=== PATIENT | female | born 1975 | race Caucasian/White ===

== ENCOUNTER 2018-01-08 21:42 | Emergency (ER) | payer OTHER ==
[2018-01-08 22:02] VITALS: BMI 24.5
--- NOTE | 2018-01-08 22:18 | PDOC ---
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 Right elbow fracture Pshx:2013: Open-heart surgery, 2015: ORIF right elbow Allergies:NKDA FH:0 Social Hx: Cigarettes/ 0 Alcohol/ 0 Drugs/0 LMP:12/24/2017 42-year-old female presents to the emergency department with her complaining of left-sided flank pain with urinary frequency/urgency/hesitancy without hematuria but endorses nausea 3 days. Patient states she was at [facility] emergency department yesterday and waited for approximately 5 hours which prompted him to leave without getting seen. Patient denies fever, chills, dizziness, lightheadedness, neck pain/stiffness, back pains, chest pain , shortness of breath, abdominal pain. There are no alleviating factors but exacerbated on touch to the left flank. Patient states it feels similar to her previous UTI but with left flank pain now. Past History - Past Medical History Allergies/Adverse Reactions: Allergies Allergy/AdvReac Type Severity Reaction Status Date / Time No Known Drug Allergies Allergy Verified 01/08/18 21:59 Home Medications: Ambulatory Orders NK [No Known Home Medication] 08/15/15 Asthma: No Cancer: No Cardiac Disorders: Yes (2013 'HOLE IN HEART PATCHED UP") CVA: No COPD: No CHF: No Dementia: No Diabetes: No GI Disorders: No Disorders: No HTN: No Hypercholesterolemia: No Liver Disease: No Seizures: No Thyroid Disease: No - Surgical History Abdominal Surgery: No Appendectomy: No Cardiac Surgery: Yes (2013 "HOLE IN HEART PATCHED") Cholecystectomy: No Lung Surgery: No Neurologic Surgery: No Orthopedic Surgery: Yes (R ELBOW ORIF) - Reproductive History Tubal Ligation: No Spontaneous : 2 - Immunization History Immunization Up to Date: Yes - Suicide/Smoking/Psychosocial Hx Smoking History: Never smoked Have you smoked in the past 12 months: No Number of Cigarettes Smoked Daily: 0 Cigars Per Day: 0 Hx Alcohol Use: No Drug/Substance Use Hx: No Substance Use Type: None Hx Substance Use Treatment: No Review of Systems - Review of Systems Able to Perform ROS?: Yes Comments:: 01/08/18 23:45 CONSTITUTIONAL: Absent: fever, chills, diaphoresis, generalized weakness, malaise, loss of appetite HEENT: Absent: rhinorrhea, nasal congestion, throat pain, throat swelling, difficulty swallowing, mouth swelling, ear pain, eye pain, visual Changes CARDIOVASCULAR: Absent: chest pain, loss of consciousness, palpitations, irregular heart rate, peripheral edema RESPIRATORY: Absent: cough, shortness of breath, dyspnea with exertion, orthopnea, wheezing, stridor, hemoptysis GASTROINTESTINAL: Absent: abdominal pain, abdominal distension, nausea, vomiting, diarrhea, constipation, melena, hematochezia GENITOURINARY: +Left flank pain + dysuria, frequency, urgency, hesitancy Absent: hematuria,genital pain MUSCULOSKELETAL: Absent: myalgia, arthralgia, joint swelling SKIN: Absent: rash, itching, pallor 01/08/18 23:59 Is the patient limited Malagasy proficient: No *Physical Exam - Vital Signs Last Vital Signs Temp Pulse Resp BP Pulse Ox 98.7 F 85 18 99/69 100 01/08/18 21:59 01/08/18 21:59 01/08/18 21:59 01/08/18 21:59 01/08/18 21:59 - Physical Exam Comments: 01/08/18 23:58 GENERAL: Well developed, well nourished. Awake and alert. No acute distress. HEENT: Normocephalic, atraumatic. PERRLA, EOMI. No conjunctival pallor. Sclera are non- icteric. Moist mucous membranes. Oropharynx is clear. NECK: Supple. Full ROM. No JVD. Carotid pulses 2+ and symmetric, without bruits. No thyromegaly. No lymphadenopathy. CARDIOVASCULAR: Regular rate and rhythm. No murmurs, rubs, or gallops. Distal pulses are 2+ and symmetric. PULMONARY: No evidence of respiratory distress. Lungs clear to auscultation bilaterally. No wheezing, rales or rhonchi. ABDOMINAL: Soft. Non-tender. Non-distended. No rebound or guarding. No organomegaly. Normoactive bowel sounds. MUSCULOSKELETAL +Left CVAT Normal range of motion at all joints. No bony deformities or tenderness. EXTREMITIES: No cyanosis. No clubbing. No edema. No calf tenderness. SKIN: Warm and dry. Normal capillary refill. No rashes. No jaundice. NEUROLOGICAL: Alert, awake, appropriate. Cranial nerves 2-12 intact. No deficits to light touch and temperature in face, upper extremities and lower extremities. No motor deficits in the in face, upper extremities and lower extremities. Normoreflexic in the upper and lower extremities. Normal speech. Toes are down- going bilaterally. Gait is normal without ataxia. PSYCHIATRIC: Cooperative. Good eye contact. Appropriate mood and affect. ED Treatment Course - LABORATORY CBC & Chemistry Diagram: 01/08/18 10:20 01/08/18 22:20 - RADIOLOGY Radiograph Interpretation: 01/09/18 02:12 CT renal colic: Questionable fibroids, moderate amounts of diffuse solid stool, 3 mm right middle lobe nodule may be evaluated in 12 months of the a she is at high risk for neoplasm. *DC/Admit/Observation/Transfer Diagnosis at time of Disposition: Right middle lobe pulmonary nodule UTI (urinary tract infection) Qualifiers: Urinary tract infection type: acute cystitis Hematuria presence: without hematuria Qualified Code(s): N30.00 - Acute cystitis without hematuria Constipation Qualifiers: Constipation type: unspecified constipation type Qualified Code(s): K59.00 - Constipation, unspecified - Discharge Dispostion Condition at time of disposition: Stable Decision to Admit order: No - Referrals Referrals: Gaurav Luu [Primary Care Provider] - Ronald Newell MD [Staff Physician] - Ellis Jackson MD [Staff Physician] - Johnnie Mzea MD [Staff Physician] - - Patient Instructions Printed Discharge Instructions: DI for Urinary Tract Infection (UTI), DI for Constipation, DI for Pulmonary Nodule Additional Instructions: You had a CAT scan today while in the emergency department Your preliminary impression shows you have questionable fibroids You have moderate amount of diffuse solid stool You have a 3 mm nodule to your right middle lung and it is highly suggested that you get evaluated in 12 months or sooner Please follow-up with the urologist for your UTI Please follow-up with your trash man for constipation And follow-up with the manufacturing leader for your lung nodule Return back to the emergency department for severe/persistent or worsening symptoms It is important that you take a stool softener such chest Colace or MiraLAX for constipation - Post Discharge Activity
[2018-01-08] MEDS ORDERED: SODIUM CHLORIDE 1,000 ML IV STA (22:19)
[2018-01-08 22:51] LABS: BASO % 0.7 % (0-2.0); EOS % 2.2 % (0-4.5); HEMATOCRIT 38.4 % (32.4-45.2); HEMOGLOBIN 12.6 GM/dL (10.7-15.3); LYMPH % 23.2 % (8-40); MCH 28.4 pg (25.7-33.7); MCHC 32.8 g/dl (32.0-36.0); MEAN CELL VOLUME 86.6 fl (80-96); MEAN PLT VOLUME 8.7 fl (7.5-11.1); MONO % 9.5 % (3.8-10.2); NEUT % 64.4 % (42.8-82.8); PLATELET COUNT 216 K/MM3 (134-434); RBC 4.44 M/mm3 (3.60-5.2); RDW 14.5 % (11.6-15.6); WHITE BLOOD COUNT 10.6 K/mm3 (4.0-10.0)
[2018-01-08] MEDS ORDERED: KETOROLAC TROMETHAMINE 30 MG/1 ML VIAL IVPUSH ONE (22:53)
[2018-01-08] MEDS ORDERED: KETOROLAC TROMETHAMINE 30 MG/1 ML VIAL ONE (22:54)
[2018-01-08 22:57] LABS: URINE APPEARANCE SLCLOUDY; URINE BILIRUBIN NEGATIVE (<2.0 mg/dL); URINE COLOR STRAW; URINE GLUCOSE (UA) NEGATIVE (NEGATIVE); URINE KETONE NEGATIVE (NEGATIVE); URINE LEUK ESTERASE 3+ (NEGATIVE); URINE NITRITE NEGATIVE (NEGATIVE); URINE PROTEIN NEGATIVE (NEGATIVE); URINE UROBILINOGEN NEGATIVE mg/dL (0.2-1.0)
[2018-01-08 22:59] LABS: HCG,QUALITATIVE URINE Negative
[2018-01-08 23:10] LABS: EPI CELLS RARE /HPF (FEW); URINE MUCUS RARE
[2018-01-08 23:18] LABS: ALBUMIN 3.6 g/dl (3.4-5.0); ALK PHOS 53 U/L (45-117); ANION GAP 6 MMOL/L (8-16); BILIRUBIN,TOTAL 0.3 mg/dL (0.2-1); BLOOD UREA NITROGEN 15 mg/dL (7-18); CALCIUM 8.5 mg/dL (8.5-10.1); CHLORIDE 111 mmol/L (98-107); CO2 25 mmol/L (21-32); CREATININE 0.7 mg/dL (0.55-1.3); GLUCOSE,RANDOM 94 mg/dL (74-106); POTASSIUM 4.1 mmol/L (3.5-5.1); SGOT/AST 22 U/L (15-37); SGPT/ALT 21 U/L (13-61); SODIUM 142 mmol/L (136-145); TOT PROT 6.7 g/dl (6.4-8.2)
[2018-01-08] MEDS ORDERED: METOCLOPRAMIDE HCL INJECTION 10 MG/2 ML VIAL IVPB ONE (23:26)
[2018-01-09] MEDS ORDERED: METOCLOPRAMIDE HCL INJECTION 10 MG/2 ML VIAL ONE (00:45)
[2018-01-09] MEDS ORDERED: NITROFURANTOIN MACROCRYSTAL 50 MG CAPSULE (FP) ONE (02:29)
[2018-01-09] MEDS ORDERED: NITROFURANTOIN MACROCRYSTAL 50 MG CAPSULE (FP) PO SCH (02:30)
[2018-01-09 02:42] VITALS: BP 105/71; PULSE 72; TEMP 98
== END 2018-01-09 02:43 | disposition home or self-care (01) ==
LOC: JER 21:42
PROC: 3E0337Z Introduction of Electrolytic and Water Balance Substance into Peripheral Vein, Percutaneous Approach (ICD-10-PCS; principal; 2018-01-08)
PROC: 3E033GC Introduction of Other Therapeutic Substance into Peripheral Vein, Percutaneous Approach (ICD-10-PCS; 2018-01-08)
PROC: 3E0333Z Introduction of Anti-inflammatory into Peripheral Vein, Percutaneous Approach (ICD-10-PCS; 2018-01-08)
DX: N30.00 Acute cystitis without hematuria (principal); K59.00 Constipation, unspecified; R91.1 Solitary pulmonary nodule
CPT/HCPCS: 36415; 74176; 80053; 81003; 81015; 84703; 85025; 87086; 87186; 99283-25; J7030

== ENCOUNTER 2019-05-14 16:51 | Emergency (ER) | payer OTHER ==
--- NOTE | 2019-05-14 17:05 | PDOC ---
Rapid Medical Evaluation Time Seen by Provider: 05/14/19 17:00 Medical Evaluation: Allergies Allergy/AdvReac Type Severity Reaction Status Date / Time No Known Drug Allergies Allergy Verified 01/08/18 21:59 05/14/19 17:01 Pt c/o: headache x 2 days, dizziness, sore throat, sent by dr clemente Pt on brief exam: vss, pt ordered for: head ct, labs, pt to proceed to the ED Discharge Disposition - Diagnosis Headache - Referrals - Patient Instructions - Post Discharge Activity
[2019-05-14 17:06] VITALS: BP 102/65; PULSE 85; TEMP 98.3; BMI 22.8
[2019-05-14] MEDS ORDERED: METOCLOPRAMIDE HCL INJECTION 10 MG/2 ML VIAL IVPB ONE (17:44)
[2019-05-14] MEDS ORDERED: SODIUM CHLORIDE 1,000 ML IV STA (17:46)
[2019-05-14] MEDS ORDERED: METOCLOPRAMIDE HCL INJECTION 10 MG/2 ML VIAL ONE (18:04)
[2019-05-14] MEDS ORDERED: KETOROLAC TROMETHAMINE 30 MG/1 ML VIAL IVPUSH ONE (18:11)
--- NOTE | 2019-05-14 18:24 | PDOC ---
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 Patient report was seen by PCP today for symptoms and referred for head CT but unable to get to radiologist and ordered a CT so she came to the ED. Patient reported PCP swabbed for rapid flu and strep but results will not be available until tomorrow. Patient report taking Tylenol [id number] thousand milligrams p.o. 2 hours ago for headache. Denies vomiting, diarrhea, constipation. Denies any other symptoms Is this a multiple visit Asthma Patient?: No <Mic Branch - Last Filed: 05/14/19 19:09> <Claudia Smith - Last Filed: 05/16/19 16:16> - General Chief Complaint: Headache Stated Complaint: headache, sent by PMD for head CT Time Seen by Provider: 05/14/19 17:00 Past History - Past Medical History Asthma: No Cancer: No Cardiac Disorders: Yes (2013 'HOLE IN HEART PATCHED UP") CVA: No COPD: No CHF: No Dementia: No Diabetes: No GI Disorders: No Disorders: No HTN: No Hypercholesterolemia: No Liver Disease: No Seizures: No Thyroid Disease: No Other medical history: dvt - Surgical History Abdominal Surgery: No Appendectomy: No Cardiac Surgery: Yes (2013 "HOLE IN HEART PATCHED") Cholecystectomy: No Lung Surgery: No Neurologic Surgery: No Orthopedic Surgery: Yes (R ELBOW ORIF) - Reproductive History Tubal Ligation: No Spontaneous : 2 - Immunization History Immunization Up to Date: Yes - Psycho Social/Smoking Cessation Hx Smoking History: Never smoked Have you smoked in the past 12 months: No Number of Cigarettes Smoked Daily: 0 Cigars Per Day: 0 Information on smoking cessation initiated: No Hx Alcohol Use: No Drug/Substance Use Hx: No Substance Use Type: None Hx Substance Use Treatment: No <Mic Branch - Last Filed: 05/14/19 19:09> <Claudia Smith - Last Filed: 05/16/19 16:16> - Past Medical History Allergies/Adverse Reactions: Allergies Allergy/AdvReac Type Severity Reaction Status Date / Time No Known Drug Allergies Allergy Verified 05/14/19 17:06 Home Medications: Ambulatory Orders Butalb/Acetaminophen/Caffeine [Fioricet 50-300-40 mg Capsule] 1 each PO Q6H PRN #20 capsule 05/14/19 Ipratropium Dukedom 2 spray NS BID PRN 5 Days #1 spray 05/14/19 Review of Systems - Review of Systems Able to Perform ROS?: Yes Is the patient limited Tongan proficient: No Constitutional: Yes: Chills, Fever, Malaise, Weakness HEENTM: Yes: Symptoms Reported, See HPI, Nose Congestion, Throat Pain. No: Eye Pain, Blurred Vision, Tearing, Recent change in vision, Double Vision, Cataracts , Ear Pain, Ocular Prothesis, Ear Discharge, Nose Pain, Tinnitus, Nose Bleeding , Hearing Loss, Throat Swelling, Mouth Pain, Dental Problems, Difficulty Swallowing, Mouth Swelling, Other Respiratory: No: Symptoms reported, See HPI, Cough, Orthopnea, Shortness of Breath, SOB with Exertion, SOB at Rest, Stridor, Wheezing, Productive cough, Hemoptysis, Other Cardiac (ROS): No: Symptoms Reported, See HPI, Chest Pain, Edema, Irregular Heart Rate, Lightheadedness, Palpitations, Syncope, Chest Tightness, Other ABD/GI: Yes: Symptoms Reported, See HPI, Nausea, Abdominal cramping. No: Abd. Pain w/ defecation, Blood Streaked Bowels, Constipated, Diarrhea, Difficulty Swallowing, Poor Appetite, Rectal Bleeding, Vomiting, Indigestion : No: Symptoms Reported, Dysuria, Discharge, Frequency, Urgency Musculoskeletal: No: Symptoms Reported Integumentary: No: Symptoms Reported, Rash Neurological: Yes: Symptoms reported, See HPI, Headache. No: Numbness, Paresthesia, Weakness, Dizziness All Other Systems: Reviewed and Negative <Mic Branch - Last Filed: 05/14/19 19:09> *Physical Exam - Vital Signs Last Vital Signs Temp Pulse Resp BP Pulse Ox 98.3 F 85 20 102/65 100 05/14/19 17:04 05/14/19 17:04 05/14/19 17:04 05/14/19 17:04 05/14/19 17:04 - Physical Exam 05/14/19 18:24 GENERAL: Well developed, well nourished. Awake and alert. No acute distress. HEENT: Normocephalic, atraumatic. PERRLA, EOMI. No conjunctival pallor. Sclera are non-icteric. Moist mucous membranes. Oropharynx is clear. NECK: Supple. Full ROM. CARDIOVASCULAR: Regular rate and rhythm. No murmurs, rubs, or gallops. Distal pulses are 2+ and symmetric. PULMONARY: No evidence of respiratory distress. Lungs clear to auscultation bilaterally. No wheezing, rales or rhonchi. ABDOMINAL: Soft. Non-tender. Non-distended. No rebound or guarding. No organomegaly. Normoactive bowel sounds. MUSCULOSKELETAL Normal range of motion at all joints. SKIN: Warm and dry. Normal capillary refill. No rashes. No jaundice. No cyanosis NEUROLOGICAL: Alert, awake, appropriate. Gait is normal without ataxia. PSYCHIATRIC: Cooperative. Good eye contact. Appropriate mood General Appearance: Yes: Nourished, Appropriately Dressed. No: Apparent Distress <Mic Branch - Last Filed: 05/14/19 19:09> - Vital Signs Last Vital Signs Temp Pulse Resp BP Pulse Ox 98.3 F 85 20 102/65 100 05/14/19 17:04 05/14/19 17:04 05/14/19 17:04 05/14/19 17:04 05/14/19 17:04 <Claudia Smith - Last Filed: 05/16/19 16:16> ED Treatment Course - LABORATORY CBC & Chemistry Diagram: 05/14/19 17:30 05/14/19 17:30 - Medications Given in the ED: ED Medications Discontinued Medications Generic Name Dose Route Start Last Admin Trade Name Freq PRN Reason Stop Dose Admin Metoclopramide HCl 10 mg 05/14/19 17:44 05/14/19 18:15 Reglan Injection - IVPB 05/14/19 17:45 10 mg ONCE ONE Administration <Mic Branch - Last Filed: 05/14/19 19:09> - LABORATORY CBC & Chemistry Diagram: 05/14/19 17:30 05/14/19 17:30 - ADDITIONAL ORDERS Additional order review: Laboratory Results 05/14/19 17:30 Urine Color Yellow Urine Appearance Clear Urine pH 5.0 D Ur Specific [place] 1.007 L Urine Protein Negative Urine Glucose (UA) Negative Urine Ketones Negative Urine Blood Negative Urine Nitrite Negative Urine Bilirubin Negative Urine Urobilinogen 0.2 Ur Leukocyte Esterase Negative 05/14/19 17:30 RBC 4.82 MCV 87.2 MCHC 33.1 RDW 14.0 MPV 8.4 Neutrophils % 68.2 Lymphocytes % 22.3 Monocytes % 6.7 Eosinophils % 2.2 Basophils % 0.6 - Medications Given in the ED: ED Medications Discontinued Medications Generic Name Dose Route Start Last Admin Trade Name Freq PRN Reason Stop Dose Admin Metoclopramide HCl 10 mg 05/14/19 17:44 05/14/19 18:15 Reglan Injection - IVPB 05/14/19 17:45 10 mg ONCE ONE Administration <Claudai Smith - Last Filed: 05/16/19 16:16> Medical Decision Making - Medical Decision Making 05/14/19 18:21 Patient with 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 Patient report was seen by PCP today for symptoms and referred for head CT but unable to get to radiologist and ordered a CT so she came to the ED. Patient reported PCP swabbed for rapid flu and strep but results will not be available until tomorrow. Patient report taking Tylenol [id number] thousand milligrams p.o. 2 hours ago for headache. Denies vomiting, diarrhea, constipation. Denies any other symptoms Clinical exam unremarkable with normal cardio and lung exam. Patient afebrile now. Patient in no acute distress. Normal neuro exam. CT ordered from triage shows no acute head pathology. Patient symptoms likely influenza. Rapid flu ordered to rule influenza. CBC and chemistry lab ordered. IV fluids 1 L normal saline and Reglan 10 mg IV ordered for headaches. Toradol 30 mg IV ordered for headache. Reassess after 20 minutes 05/14/19 19:02 CBC and CMP labs unremarkable. Flu test negative. Urine lab with no acute abnormality. Patient reported complete improvement of symptoms now. Patient symptoms likely viral URI and viral syndrome. Patient stable for discharge on Fioricet PRN for headache and Atrovent nasal spray for nasal congestion with advised to increase fluid intake with PCP follow-up <Mic Branch - Last Filed: 05/14/19 19:09> - Medical Decision Making The patient was seen and evaluated in conjunction with midlevel provider under my direct supervision, ancillary studies were reviewed. I agree with the plan as outlined with SURESH Branch. HPI, workup/dispo as outlined. VS reviewed, wnl. RME orders initiated CTH neg for acute pathology labs and lytes wnl, UA neg, reassuring sal PO intake. analgesia anticipate discharge, pcp followup, return precautions 05/14/19 18:33 05/16/19 16:16 <Claudia Smith - Last Filed: 05/16/19 16:16> Discharge - Discharge Information Problems reviewed: Yes - Admission No <Mic Branch - Last Filed: 05/14/19 19:09> <Claudia Smith - Last Filed: 05/16/19 16:16> - Discharge Information Clinical Impression/Diagnosis: Acute viral syndrome Headache Qualifiers: Headache type: unspecified Headache chronicity pattern: acute headache Intractability: not intractable Qualified Code(s): R51 - Headache Condition: Improved Disposition: HOME - Additional Discharge Information Prescriptions: Butalb/Acetaminophen/Caffeine [Fioricet 50-300-40 mg Capsule] 1 each PO Q6H PRN #20 capsule PRN Reason: headache Ipratropium D[place]edom 2 spray NS BID PRN 5 Days #1 spray PRN Reason: nasal congestion - Patient Discharge Instructions Patient Printed Discharge Instructions: DI for Viral Syndrome Additional Instructions: Blood work is normal. Your head CAT scan is normal and shows no acute intracranial normality. symptoms likely from viral infection. Flu test is negative. Take prescribed medication as prescribed as needed for headache. Increase fluid intake. Rest for the next 2 days. Follow-up with your primary care as needed
[2019-05-14 18:30] LABS: BASO % 0.6 % (0-2.0); EOS % 2.2 % (0-4.5); HEMOGLOBIN 13.9 GM/dL (10.7-15.3); LYMPH % 22.3 % (8-40); MCH 28.9 pg (25.7-33.7); MCHC 33.1 g/dl (32.0-36.0); MEAN CELL VOLUME 87.2 fl (80-96); MEAN PLT VOLUME 8.4 fl (7.5-11.1); MONO % 6.7 % (3.8-10.2); NEUT % 68.2 % (42.8-82.8); PLATELET COUNT 252 K/MM3 (134-434); RBC 4.82 M/mm3 (3.60-5.2); WHITE BLOOD COUNT 10.2 K/mm3 (4.0-10.0)
[2019-05-14 18:31] LABS: URINE APPEARANCE CLEAR; URINE BILIRUBIN NEGATIVE (NEGATIVE); URINE COLOR YELLOW; URINE GLUCOSE (UA) NEGATIVE (NEGATIVE); URINE KETONE NEGATIVE (NEGATIVE); URINE LEUK ESTERASE NEGATIVE (NEGATIVE); URINE NITRITE NEGATIVE (NEGATIVE); URINE PROTEIN NEGATIVE (NEGATIVE); URINE UROBILINOGEN 0.2 mg/dL (0.2-1.0)
[2019-05-14] MEDS ORDERED: KETOROLAC TROMETHAMINE 30 MG/1 ML VIAL ONE (18:40)
[2019-05-14 19:11] LABS: ALBUMIN 3.8 g/dl (3.4-5.0); BILIRUBIN,TOTAL 0.6 mg/dL (0.2-1); BLOOD UREA NITROGEN 10.4 mg/dL (7-18); CALCIUM 9.3 mg/dL (8.5-10.1); CREATININE 0.6 mg/dL (0.55-1.3); POTASSIUM 4.3 mmol/L (3.5-5.1); TOT PROT 7.1 g/dl (6.4-8.2)
--- NOTE | 2019-05-15 16:44 | EKG ---
Test Reason : Blood Pressure : / mmHG Vent. Rate : 073 BPM Atrial Rate : 073 BPM P-R Int : 168 ms QRS Dur : 080 ms QT Int : 388 ms P-R-T Axes : 039 -10 039 degrees QTc Int : 427 ms NORMAL SINUS RHYTHM LOW VOLTAGE QRS BORDERLINE ECG Confirmed by MD SWATI, SANDY ([id number]) on 05/15/2019 4:44:04 PM Referred By: Confirmed By:SANDY LONGORIA MD
== END 2019-05-14 19:12 | disposition home or self-care (01) ==
LOC: JER 16:51
PROC: 3E0337Z Introduction of Electrolytic and Water Balance Substance into Peripheral Vein, Percutaneous Approach (ICD-10-PCS; principal; 2019-05-14)
PROC: 3E0333Z Introduction of Anti-inflammatory into Peripheral Vein, Percutaneous Approach (ICD-10-PCS; 2019-05-14)
PROC: 3E033GC Introduction of Other Therapeutic Substance into Peripheral Vein, Percutaneous Approach (ICD-10-PCS; 2019-05-14)
DX: B34.9 Viral infection, unspecified (principal); J06.9 Acute upper respiratory infection, unspecified; Z86.79 Personal history of other diseases of the circulatory system; Z86.718 Personal history of other venous thrombosis and embolism
CPT/HCPCS: 36415; 70450-TC; 80053; 81003; 84703; 85025; 87804; 93005; 93010; 99285-25; J7030

== ENCOUNTER 2020-03-27 19:49 | Emergency (ER) | payer OTHER ==
[2020-03-27 19:53] VITALS: BP 115/78; PULSE 70; TEMP 98; BMI 24.3
[2020-03-27] MEDS ORDERED: ACETAMINOPHEN/CAFFEINE/BUTALBITAL 1 TAB PO ONE (20:45)
[2020-03-27] MEDS ORDERED: ACETAMINOPHEN/CAFFEINE/BUTALBITAL 1 TAB ONE (21:10)
== END 2020-03-27 22:26 | disposition home or self-care (01) ==
LOC: JER 19:49
DX: R51.9 Headache, unspecified (principal)
CPT/HCPCS: 70450-TC; 99284-25

== ENCOUNTER 2021-10-23 01:34 | Emergency (ER) | payer OTHER ==
[2021-10-23 01:57] VITALS: BP 114/74; PULSE 63; RESP 20; TEMP 97.9; BMI 25.8
[2021-10-23] MEDS ORDERED: IBUPROFEN 400 MG TABLET (FP) PO ONE (03:51)
== END 2021-10-23 04:15 | disposition home or self-care (01) ==
LOC: JER 01:34
DX: S93.601A Unspecified sprain of right foot, initial encounter (principal); S96.911A Strain of unspecified muscle and tendon at ankle and foot level, right foot, initial encounter; W10.9XXA Fall (on) (from) unspecified stairs and steps, initial encounter
CPT/HCPCS: 73610-TC-RT-FY; 73630-TC-RT-FY; 99283-25

== ENCOUNTER 2023-06-18 15:19 | Emergency (ER) | payer OTHER ==
[2023-06-18 15:34] VITALS: TEMP 98.4; BMI 23.8
[2023-06-18] MEDS: SODIUM CHLORIDE 0.9% 500 ML INFUS.BAG IV ONE (16:53)
[2023-06-18 16:54] LABS: BASO % 1.1 % (0-2.0); EOS % 4.6 % (0-4.5); HEMATOCRIT 41.9 % (32.4-45.2); HEMOGLOBIN 13.7 GM/dL (10.7-15.3); LYMPH % 39.2 % (8-40); MCH 28.2 pg (25.7-33.7); MCHC 32.7 g/dl (32.0-36.0); MEAN CELL VOLUME 86.2 fl (80-96); MEAN PLT VOLUME 8.7 fl (7.5-11.1); MONO % 7.9 % (3.8-10.2); NEUT % 47.2 % (42.8-82.8); PLATELET COUNT 223 10^3/uL (134-434); RBC 4.86 M/mm3 (3.60-5.2); WHITE BLOOD COUNT 7.7 K/mm3 (4.0-10.0)
[2023-06-18] MEDS ORDERED: KETOROLAC TROMETHAMINE 30 MG/1 ML VIAL ONE (16:56)
[2023-06-18] MEDS: KETOROLAC TROMETHAMINE 30 MG/1 ML VIAL IVPUSH ONE (17:07)
[2023-06-18 17:32] LABS: CHLORIDE 110 mmol/L (98-107); POTASSIUM 4.5 mmol/L (3.5-5.1); SODIUM 142 mmol/L (136-145)
[2023-06-18 17:34] LABS: CALCIUM 9.5 mg/dL (8.5-10.1)
[2023-06-18 17:35] LABS: ALBUMIN 3.8 g/dl (3.4-5.0); ANION GAP 7 mmol/L (4-13); BLOOD UREA NITROGEN 14.8 mg/dL (7-18); CO2 25 mmol/L (21-32); GLUCOSE,RANDOM 90 mg/dL (74-106)
[2023-06-18 17:38] LABS: CREATININE 0.8 mg/dL (0.55-1.3); SGOT/AST 20 U/L (15-37); SGPT/ALT 23 U/L (13-61)
[2023-06-18 17:39] LABS: BILIRUBIN,TOTAL 0.3 mg/dL (0.2-1); TOT PROT 7.2 g/dl (6.4-8.2)
[2023-06-18 17:41] LABS: ALK PHOS 64 U/L (45-117)
[2023-06-18 17:50] LABS: EPI CELLS 5 /uL (0-25.1); HYALINE CASTS 0 /uL (0-3.1); URINE APPEARANCE CLEAR; URINE BACTERIA 17 /uL (0-1359); URINE BILIRUBIN NEGATIVE (NEGATIVE); URINE COLOR YELLOW; URINE GLUCOSE (UA) NEGATIVE (NEGATIVE); URINE KETONE NEGATIVE (NEGATIVE); URINE LEUK ESTERASE TRACE (NEGATIVE); URINE NITRITE NEGATIVE (NEGATIVE); URINE PROTEIN NEGATIVE (NEGATIVE); URINE RBC 7 /uL (0-23.9); URINE UROBILINOGEN 0.2 mg/dL (0.2-1.0); URINE WBC 9 /uL (0-25.8)
[2023-06-18 20:15] VITALS: BP 106/70; PULSE 66; RESP 16
[2023-06-18] MEDS ORDERED: AMOX TR/POT CLAV 875MG/125MG TABLETS (FP) ONE (23:04)
[2023-06-18] MEDS: AMOX TR/POT CLAV 875MG/125MG TABLETS (FP) PO ONE (23:10)
== END 2023-06-18 23:11 | disposition home or self-care (01) ==
LOC: JER 15:19
PROC: 3E0333Z Introduction of Anti-inflammatory into Peripheral Vein, Percutaneous Approach (ICD-10-PCS; principal; 2023-06-18)
DX: R10.9 Unspecified abdominal pain (principal); R53.1 Weakness; R53.83 Other fatigue; R51.9 Headache, unspecified; M79.10 Myalgia, unspecified site; K59.00 Constipation, unspecified; K52.9 Noninfective gastroenteritis and colitis, unspecified
CPT/HCPCS: 36415; 70450-TC; 74177-TC; 80053; 81003; 83690; 84703; 85025; 86140; 87086; 99285-25; Q9967